=== PATIENT | female | born 1990 | race Caucasian/White ===

== ENCOUNTER 2016-11-28 12:05 | Inpatient (IN) | payer OTHER ==
[2016-11-28] VITALS (7 sets, daily range): BP systolic 112–136; BP diastolic 58–71
[~2016-11-28] VITALS: Ht 170.2 cm; Wt 98.2 kg
[2016-11-28] MEDS ORDERED: DHA100 MG PO ×2 (12:56)
[2016-11-28] MEDS ORDERED: EXPECTA PRENAT1 EACH PO ×2 (12:57)
[2016-11-28 13:46] LABS: EOSINOPHIL (%) 0 % (0-5); HEMATOCRIT 37.6 % (36.0-46.0); IMMATURE GRANULOCYTE (%) 0.3 % (0.0-0.7); IMMATURE GRANULOCYTE COUNT 0.1 K/uL; LYMPHOCYTE COUNT 0.9 K/uL (1.0-2.8); MCH 29.9 PG (29.0-34.0); MCHC 34.8 G/DL (30.0-36.0); MCV 85.8 FL (83-99); MEAN PLAT.VOLUME 11.8 uM^3 (9.5-12.4); MONOCYTE (%) 5.1 % (3-12); NEUTROPHIL (%) 90.3 % (45-76); NEUTROPHIL COUNT 18.3 K/uL (1.8-6.4); PLATELET COUNT 160 K/uL (156-360); RBC DIS.WIDTH-CV 13.5 % (11.8-14.6); RED BLOOD COUNT 4.38 M/uL (3.80-5.20); WHITE BLOOD COUNT 20.3 K/uL (4.1-10.2)
[2016-11-28 18:31] LABS: BASE EXCESS -5.2 mEq/L (-3 to +3); BICARBONATE 23.3 mEq/L (22-26); CARBOXY HGB 0 % (0-5); COMMENTS - BLOOD GASES C+; METHEMOGLOBIN 0.9 % (0-1.5); PCO2 57 mm Hg (35-45); PO2 < 28 mm Hg (80-100); SITE PLACENTA; pH 7.22 (7.35-7.45)
[2016-11-28] MEDS ORDERED: IBUPROFEN800 MG PO (19:00)
[2016-11-28] MEDS ORDERED: ENDOCET 5-3251 EACH PO (19:00)
[2016-11-29] VITALS (7 sets, daily range): BP systolic 120–132; BP diastolic 63–73
[2016-11-29 06:46] LABS: EOSINOPHIL (%) 0.1 % (0-5); HEMATOCRIT 27.3 % (36.0-46.0); IMMATURE GRANULOCYTE (%) 0.3 % (0.0-0.7); IMMATURE GRANULOCYTE COUNT 0.1 K/uL; LYMPHOCYTE COUNT 1.6 K/uL (1.0-2.8); MCH 29.3 PG (29.0-34.0); MCHC 34.4 G/DL (30.0-36.0); MEAN PLAT.VOLUME 11.4 uM^3 (9.5-12.4); MONOCYTE (%) 4.9 % (3-12); MONOCYTE COUNT 0.9 K/uL (0-0.8); NEUTROPHIL (%) 86.2 % (45-76); NEUTROPHIL COUNT 16.7 K/uL (1.8-6.4); PLATELET COUNT 140 K/uL (156-360); RBC DIS.WIDTH-CV 13.5 % (11.8-14.6); RBC DIS.WIDTH-SD 41.7 % (39-53); WHITE BLOOD COUNT 19.3 K/uL (4.1-10.2)
[2016-11-29 06:51] LABS: RED BLOOD COUNT 3.21 M/uL (3.80-5.20)
[2016-11-30 02:14] VITALS: BP 129/69
[2016-11-30 08:04] VITALS: BP 127/74
[2016-11-30] MEDS ORDERED: FERROUS SULFAT325 MG PO (09:35)
[2016-11-30 10:41] VITALS: BP 130/71
== END 2016-11-30 14:33 | disposition home or self-care (01) | DRG 766 ==
LOC: LDRP-OP → 2WEST 12:06 → LDRP-OP 12-17 15:49
PROVIDERS: Midwife; Obstetrics & Gynecology
PROC: 10D00Z1 Extraction of Products of Conception, Low, Open Approach (ICD-10-PCS; principal; 2016-11-28)
DX: O76 Abnormality in fetal heart rate and rhythm complicating labor and delivery (principal); O69.1XX1 Labor and delivery complicated by cord around neck, with compression, fetus 1; O99.824 Streptococcus B carrier state complicating childbirth; Z37.0 Single live birth; O77.0 Labor and delivery complicated by meconium in amniotic fluid; Z3A.41 41 weeks gestation of pregnancy; Z88.8 Allergy status to other drugs, medicaments and biological substances
CPT/HCPCS: 36600; 82803; 85025; 88307; J0330; J0595; J0690; J1100; J1170; J1885; J2175; J2250; J2270; J2405; J2540; J2590; J3010; J7120